=== PATIENT | female | born 1950 | race Caucasian/White ===

== ENCOUNTER 2016-07-04 13:25 | Emergency (ER) | payer OTHER, BC ==
[2016-07-04 13:51] VITALS: RESP 18; TEMP 98.1
[2016-07-04] MEDS ORDERED: TDAP ADULT 0.5 ML INJ (BOOSTRIX) IM ONE (13:56)
--- NOTE | 2016-07-04 14:00 | EDPHY ---
H & P Smoking Status: Never smoked Time Seen by Provider: 07/04/16 13:26 HPI/ROS: CHIEF COMPLAINT: Head injury, right knee pain HISTORY OF PRESENT ILLNESS: 65-year-old female presents after a fall with a head injury and right knee pain. She was walking when she tripped and fell over a rise in the sidewalk. She fell onto her right knee and then her face hit the pavement. She did not lose consciousness. She has a moderate headache. She was able to walk on scene. Mild right knee pain, aggravated by movement. No neck pain or other injuries. REVIEW OF SYSTEMS: Constitutional: No weakness Eyes: transient right eye blurriness ENT: No dental trauma Neck:No pain or injury Respiratory: No shortness of breath Cardiac: No chest pain Gastrointestinal: No abdominal pain, no vomiting Back:No pain or injury Genitourinary: No hematuria Skin: facial abrasions Neurological: no dizziness (Rita Butler) Past Medical/Surgical History: Retinal tear right eye Lyme disease (Rita Butler) Social History: Moved to [place] 3 months ago (Rita Butler) Physical Exam: General Appearance: Alert, pleasant and talkative Head: forehead contusion and abrasions centrally between the eyebrows Eyes: No conjunctival erythema, PERRLA, EOMI ENT, Mouth: No hemotympanum, no oral trauma, tenderness over the nasal bridge with an overlying abrasion Neck: Nontender, full range of motion without pain Respiratory: No chest wall tenderness, lungs clear bilaterally Cardiovascular: Regular rate and rhythm Abdomen: Abdomen is soft and nontender Back: No midline T/L/S tenderness Extremities: Pelvis is stable and nontender; right knee-small abrasion anteriorly, no joint effusion, range of motion with mild pain Neurological: A&Ox3, normal motor function, normal sensory exam, cranial nerves intact, normal gait Psychiatric: Mood and affect normal (Rita Butler) Constitutional: Initial Vital Signs Temperature (C) 36.7 C 07/04/16 13:46 Heart Rate 85 07/04/16 13:46 Respiratory Rate 18 07/04/16 13:46 Blood Pressure 210/108 H 07/04/16 13:46 O2 Sat (%) 95 07/04/16 13:46 O2 Delivery Mode Room Air Allergies/Adverse Reactions: cephalothin [From Seffin] Allergy (Verified 07/04/16 13:51) doxycycline Allergy (Verified 07/04/16 13:51) Home Medications: Medication Instructions Recorded amLODIPine BESYLATE [Norvasc 2.5 2.5 mg PO DAILY #20 tab 07/04/16 mg (*)] Medical Decision Making Procedures: Procedure: Laceration repair. I was requested by Dr. Butler to perform wound closure I explained the indications, risks and benefits for both laceration repair and anesthetic administration. Verbal consent was obtained from the patient . The 1.5 cm laceration on the bridge of nose was anesthetized using 0.5% bupivicaine without epinephrine . After anesthetic administered the patient was observed for a period of time and had no apparent adverse effects. The wound was cleaned , prepped, draped in normal sterile fashion and explored to its base. No foreign body seen, no foreign bodies palpated. There were no deep structures involved. The wound was repaired with 3 simple interrupted 6 0 Ethilon sutures. The wound repair was simple. The procedure was performed by myself. Patient has been informed that scarring will occur, although efforts have been made to minimize this. (Ozzy Mckee) ED Course/Re-evaluation: CT scan results were discussed with the patient and her partner. Dr. Ley from neurosurgery was consulted and saw the patient in the emergency department. He queries whether the tiny left frontal intracranial hemorrhage is true or artifact. In any case, given the small size of the hemorrhage, he feels that she is safe and stable for discharge and does not need to be admitted for observation. The patient and her concur with this decision and wish to go home. They will return for worsening headache or any signs worsening head injury. She will follow up with ENT regarding the nasal fracture. On discharge, this patient's blood pressure was noted to be very high. It was rechecked several times and remained quite elevated. I discussed this with the patient at length. We have decided to place her on low-dose antihypertensive medication and she will follow up with her primary care physician. Norvasc 2.5 mg orally given. A prescription for Norvasc was given. Addendum: 07/06/2016 at 2:00 p.m.-I called this patient to check on her and to ensure that she would receive timely follow-up. She has a follow-up appointment scheduled for tomorrow morning. Her blood pressure has subsided and is in a fairly normal range now after starting Norvasc. She is taking ibuprofen for pain which is bothering her stomach. I asked her to switch to Tylenol. She has continued mild headaches, but they are subsiding. She has some pain behind her right eye and is concerned about her retina. She has a follow-up contact for a retina specialist and will follow up in the office. Her vision remains normal. I told her that I would like to prescribe antibiotics because of the open nasal fracture. She prefers to wait, as she does not do well on antibiotics and has multiple allergies. She will talk to her physician tomorrow about starting antibiotics. Overall she is doing much better. (Rita Butler) Differential Diagnosis: Differential diagnosis includes though it is not limited to fracture, intracranial hemorrhage, pneumothorax, hemothorax, intra-abdominal hemorrhage. (Rita Butler) - Data Points Laboratory Results: Laboratory Results 07/04/16 13:30 07/04/16 13:30 Medications Given: Discontinued Medications Amlodipine Besylate (Norvasc) 2.5 mg PO EDNOW ONE Stop: 07/04/16 17:21 Last Admin: 07/04/16 18:14 Dose: 2.5 mg Diphtheria/Tetanus/Acell Pertussis (Boostrix) 0.5 ml IM .ONCE ONE Stop: 07/04/16 13:57 Last Admin: 07/04/16 15:49 Dose: 0.5 ml Ibuprofen (Motrin) 600 mg PO EDNOW ONE Stop: 07/04/16 18:15 Last Admin: 07/04/16 18:29 Dose: 600 mg Tetracaine/Epinephrine/Lidocaine (Let Gel Topical) 1 ea TP EDNOW ONE Stop: 07/04/16 14:03 Last Admin: 07/04/16 14:17 Dose: 1 ea Departure - Departure Disposition: Home, Routine, Self-Care Clinical Impression: Intracranial hemorrhage Facial abrasion Qualifiers: Encounter type: initial encounter Qualified Code(s): S00.81XA - Abrasion of other part of head, initial encounter Nasal fracture Qualifiers: Encounter type: initial encounter Fracture type: open Qualified Code(s): S02.2XXB - Fracture of nasal bones, initial encounter for open fracture Hypertension Qualifiers: Hypertension type: essential hypertension Qualified Code(s): I10 - Essential ( primary) hypertension Condition: Serious Instructions: Care For Your Stitches (ED), Head Injury (ED), Contusion in Adults (ED), Abrasion (ED), Hypertension (ED), Facial Laceration (ED) Additional Instructions: Return for worsening headache, vomiting, any concerns. Return for suture removal in 5 days. Referrals: Charanjit Angulo MD [Medical Doctor] - As per Instructions Pascale Layton MD [Medical Doctor] - 3-4 days, if not improved Cuauhtemoc Pineda MD [Medical Doctor] - As per Instructions (Follow-up with Dr. Pineda, medical doctor nuclear medicine, in the office. Call for an appointment.) Prescriptions: amLODIPine BESYLATE [Norvasc 2.5 mg (*)] 2.5 mg PO DAILY #20 tab
[2016-07-04] MEDS ORDERED: LET GEL TOPICAL 1 EA SYR TP ONE (14:02)
[2016-07-04 15:46] LABS: % IMMATURE GRANULYOCYTES 0.1 % (0.0-1.1); ABSOLUTE IMMATURE GRANULOCYTES 0.01 10^3/uL (0.00-0.10); ADD DIFF? NO; ADD MORPH? NO; ADD SCAN? NO; ATYPICAL LYMPHOCYTE FLAG 10 (0-99); FRAGMENT RBC FLAG 0 (0-99); HEMOGLOBIN 14.3 g/dL (12.6-16.3); LEFT SHIFT FLG 0 (0-99); LIPEMIA HEMOLYSIS FLAG 90 (0-99); MEAN CELL HEMOGLOBIN 32.1 pg (27.9-34.1); MEAN CELL VOLUME 94.4 fL (81.5-99.8); MEAN PLATELET VOLUME 10.1 fL (8.7-11.7); PLATELET CLUMPS FLAG 10 (0-99); PLATELET COUNT 227 10^3/uL (150-400); RED BLOOD CELL COUNT 4.45 10^6/uL (4.18-5.33); RED CELL DISTRIBUTION WIDTH 12.6 % (11.5-15.2)
[2016-07-04 16:01] LABS: ANION GAP 10 mEq/L (8-16); APTT 30.3 SEC (23.0-38.0); CALCIUM 9.6 mg/dL (8.5-10.4); CARBON DIOXIDE 22 mEq/l (22-31); CHLORIDE 101 mEq/L (97-110); CREATININE 0.8 mg/dL (0.6-1.0); GLOMERULAR FILTRATION RATE > 60; GLUCOSE 105 mg/dL (70-100); INR 1.04 (0.83-1.16); POTASSIUM 4.1 mEq/L (3.5-5.2); PROTIME(PATIENT) 13.5 SEC (12.0-15.0); SODIUM 133 mEq/L (134-144)
[2016-07-04] MEDS ORDERED: IBUPROFEN 600 MG TAB PO ONE (18:14)
[2016-07-04 18:57] VITALS: BP 193/98; PULSE 78; O2SAT 96
--- NOTE | 2016-07-04 21:08 | GCON ---
[f rep st] CONSULTATION NEUROSURGERY CONSULTATION. DATE OF CONSULTATION: 07/04/2016 The patient was seen and evaluated at approximately 3:00 p.m. in the [facility]. HPI: The patient is a 65-year-old woman who was walking on the sidewalk this morning on her way to a work engagement when she tripped over the curb and fell over on the sidewalk. She fell on the rig ht knee and then hit her face flat on the pavement. She did not have a loss of consciousness. She had some immediate pain in the nose but otherwise got up from the ground and was able to walk around at the scene. She had some bleeding from the nose and swelling of the face therefore was brought i nto the emergency department. Here she had a GCS of 15, was completely neurologically intact, compl aining of only moderate headache and mild neck pain which is the same as her usual neck pain she say s. CT of the head was performed which revealed some nasal bone fractures and a possible tiny cortic al traumatic subarachnoid hemorrhage near the midline on the left side measuring about 2 mm. She cu rrently has no complaints and is otherwise quite oriented and feeling well. REVIEW OF SYSTEMS: A 10-point review of systems is negative other than that described in the HPI. PAST MEDICAL HISTORY: 1. Right eye retinal tear. 2. Lyme disease. PAST SURGICAL HISTORY: None. FAMILY HISTORY: Positive for colon cancer in the mother and father and lymphoma in the father. SOCIAL HISTORY: The patient just moved to [place] 3 months ago. She works as an insurance sales executive. She does not smoke and drinks only social alcohol. ALLERGIES: 1. . 2. DOXYCYCLINE. MEDICATIONS: Trazodone at nighttime. PHYSICAL EXAM: VITAL SIGNS: Currently she is afebrile with normal stable vital signs other than he r blood pressure is elevated near 200 systolic initially but has come down now down to the 160s. GE NERAL: She is awake, alert, and oriented x3. HEENT: The pupils are equal, round, and react to lig ht. Extraocular movements are intact. Face is symmetric. Tongue is midline. She has some swellin g over the forehead and the nose, consistent with her traumatic injury. Her speech is clear and flu ent. NEUROLOGIC: She has full 5/5 strength in the upper and lower extremities bilaterally. Sensat ion is intact and deep tendon reflexes are normal. She does not have any dysmetria or dysdiadochoki nesia. IMAGING REVIEW: CT of the head was reviewed and showed some small nasal bone fractures. I honestly cannot tell if there is a real traumatic subarachnoid hemorrhage or not given the amount of bony ar tifact near the anterior skull base and javier leon. It is possible there is a tiny traumatic sub arachnoid hemorrhage in this area but there is no brain compression shift or any sign of any gas in that region. The remainder of the head CT appears normal. RESULTS REVIEW: There are currently no labs for review. ASSESSMENT AND PLAN: The patient is a 65-year-old woman status post fall without a loss of consciou sness. It is possible that she has a tiny traumatic subarachnoid hemorrhage on the left side withou t any sign of brain compression. I spoke to her and her partner at length regarding this finding. There is relatively recent literature that was very well done that suggested that she does not requi re hospital admission as the chance of any kind of late side effects or enlargement of this hemorrha ge in a patient who is otherwise healthy and not on blood thinners, is quite low. I really have no concerns about her going home and I discussed this with her and her partner and they are quite comfo rtable with this as well. I cautioned them that if she should experience any new neurologic symptom s that she should certainly return to the emergency department or call us immediately but I strongly doubt that this would happen. I told her about the symptoms of concussion, including headaches, di zziness, nausea, tinnitus and some cognitive delay which may last up to several months. I suggest t hat for the headaches, the best thing to take is nonsteroidal anti-inflammatories and, hopefully, th ramirez would help some if she develops these kind of headaches. She is going to have her nose looked a t here in the emergency department and then can be discharged home. [facility] to see if she would need followup in a couple of weeks. I told her if she is feeling f ine at that point, that she could easily cancel that appointment. I discussed her care with the [facility] and the ER, Dr. Butler, and all of us are in agreement with her plan of care. /[id number]/MODL
== END 2016-07-04 18:57 | disposition home or self-care (01) ==
PROC: 09QKXZZ Repair Nasal Mucosa and Soft Tissue, External Approach (ICD-10-PCS; principal; 2016-07-04)
DX: S06.2X0A Diffuse traumatic brain injury without loss of consciousness, initial encounter (principal); S02.2XXB Fracture of nasal bones, initial encounter for open fracture; S01.21XA Laceration without foreign body of nose, initial encounter; Z23 Encounter for immunization; W01.198A Fall on same level from slipping, tripping and stumbling with subsequent striking against other object, initial encounter; Y99.8 Other external cause status; Y93.01 Activity, walking, marching and hiking

== ENCOUNTER → 2017-07-17 | Outpatient (CLI) | payer OTHER, BC | LOC: FIMAGING 10:52 | PROVIDERS: ATTEND Family Medicine | DX: Z12.31 Encounter for screening mammogram for malignant neoplasm of breast (principal); Z13.820 Encounter for screening for osteoporosis; M85.89 Other specified disorders of bone density and structure, multiple sites; E78.2 Mixed hyperlipidemia; N95.9 Unspecified menopausal and perimenopausal disorder ==